=== PATIENT | female | born 1955 | race Caucasian/White ===

== ENCOUNTER → 2017-06-27 14:47 | Outpatient (CLI) | payer OTHER, SELFPAY ==
[2017-06-27 14:53] LABS: Bacteria 0 SEEN /hpf (None Seen); Mucous, Urine 0 SEEN /hpf (<or=2+); Red Blood Cells-Urine 0 SEEN /hpf (0-5); Squamous Epithelial Cells - UA 0 SEEN /hpf (5-10); White Blood Cells 0 SEEN /hpf (0-5)
[2017-06-27 15:40] LABS: Color, Urine Yellow (Yellow); Glucose, Dipstick Normal (Normal); Ketone-Dipstick Negative (Negative); Leukocyte Esterase-Dipstick Negative /ul (Negative); Nitrite-Dipstick Negative (Negative); Occult Blood-Urine 25 /ul (Negative); Protein-Dipstick Negative (Negative); Specific Gravity, Urine 1.015 (1.002-1.030); Urine Bilirubin Dipstick Negative (Negative); Urine Clarity Clear (Clear); Urine Urobilinogen Normal (Normal)
== END ==
PROVIDERS: Family Provider Nurse Practitioner Family; PCP Nurse Practitioner Family; Visit Provider Nurse Practitioner Family
DX: R10.9 Unspecified abdominal pain (principal)
CPT/HCPCS: 81001; 87086

== ENCOUNTER → 2017-07-01 12:22 | Outpatient (CLI) | payer OTHER, SELFPAY ==
--- NOTE | 2017-07-01 12:26 | US_ITS ---
US Transvaginal Non-OB INDICATION: MID PELVIC AND PERONEAL PAIN X 1 MONTHPOST MENOPAUSALTUBAL LIGATION 1986 COMPARISON: None TECHNIQUE: Ultrasonographic grayscale and Doppler duplex investigation of the pelvic structures by a transvaginal and transabdominal approach FINDINGS: The uterus is anteverted and measures 8.3 x 4.6 x 2.5 cm within endometrial stripe of 4 mm. Fluid is seen in the endometrium. A 1 cm fundal fibroid is noted. The myometrium is overall heterogenous. Prominent vessels are seen in the left pelvis suggestive of venous congestion. The right ovary is only visualized transabdominally, measures normal in size and demonstrates normal flow. The left ovary is normal in size and demonstrates normal follicular anatomy and normal flow. The urinary bladder contains 350 mL at the time of the scan and appears within normal limits. There is no evidence of free fluid. US/Transvaginal Non- IMPRESSION: Prominent venous vessels in the left pelvis suggestive of pelvic venous congestion. 4 mm endometrial stripe with suggestion of fluid in the endometrium, unusual for a postmenopausal patient, gynecological evaluation is recommended. Normal-sized ovaries with normal flow. at 1903 Reported and signed by: Anna Motta MD Electronically Signed: Anna Motta MD at 19:01 EDT Tel , Service support ,
--- NOTE | 2017-07-01 12:26 | US_ITS ---
US Transvaginal Non-OB INDICATION: MID PELVIC AND PERONEAL PAIN X 1 MONTHPOST MENOPAUSALTUBAL LIGATION 1986 COMPARISON: None TECHNIQUE: Ultrasonographic grayscale and Doppler duplex investigation of the pelvic structures by a transvaginal and transabdominal approach FINDINGS: The uterus is anteverted and measures 8.3 x 4.6 x 2.5 cm within endometrial stripe of 4 mm. Fluid is seen in the endometrium. A 1 cm fundal fibroid is noted. The myometrium is overall heterogenous. Prominent vessels are seen in the left pelvis suggestive of venous congestion. The right ovary is only visualized transabdominally, measures normal in size and demonstrates normal flow. The left ovary is normal in size and demonstrates normal follicular anatomy and normal flow. The urinary bladder contains 350 mL at the time of the scan and appears within normal limits. There is no evidence of free fluid. US/Pelvic (Non ) IMPRESSION: Prominent venous vessels in the left pelvis suggestive of pelvic venous congestion. 4 mm endometrial stripe with suggestion of fluid in the endometrium, unusual for a postmenopausal patient, gynecological evaluation is recommended. Normal-sized ovaries with normal flow. at 1903 Reported and signed by: Anna Motta MD Electronically Signed: Anna Motta MD at 19:01 EDT Tel , Service support ,
== END ==
PROVIDERS: Family Provider Nurse Practitioner Family; PCP Nurse Practitioner Family; Visit Provider Nurse Practitioner Women's Health
DX: R10.2 Pelvic and perineal pain (principal)
CPT/HCPCS: 76830; 76856

== ENCOUNTER 2018-09-10 10:45 | Emergency (ER) | payer OTHER, SELFPAY ==
[2018-09-10 10:47] VITALS: BP 129/75; PULSE 78; RESP 17; TEMP 36.7; O2SAT 96; BMI 26.9
[2018-09-10 11:13] VITALS: TEMP 36.7
--- NOTE | 2018-09-10 11:36 | ED.VIS.LOWEX ---
History of Present Illness Chief Complaint: Lower Extremity Injury Informant: Patient Onset: Weeks - 1.5 Context: Gradual Onset Timing: Continuous Quality of Pain: Aching Current Severity: Moderate Maximum Severity: Moderate Worsened by: Walking, palpation Relieved by: Rest Associated Symptoms: Negative for: Parasthesia, Weakness, Loss of Funtion Narrative: Patient states around 2 weeks ago she had bilateral lower extremity varicose vein stripping that was performed by a surgeon in [place]. She felt great for the first 4 days, now for the past 1.5 weeks she has had gradually worsening pain and redness more so on the left lower leg, mildly on the right. 1 of the incisions has been draining serosanguineous fluid and small amounts but the others have not. She denies any swelling/edema or pain in her thighs, fevers, chest pain, or shortness of breath. This is the first time she has seen anyone since her surgery for this problem. - Past Medical History (1) Varicose veins of both lower extremities Status: Chronic Past Medical History - Allergies and Home Meds Allergies/Adverse Reactions: Allergies amoxicillin Allergy (Verified 09/10/18 10:47) Unknown aspirin Allergy (Verified 09/10/18 10:47) Unknown ATB THAT WAS GIVEN FOR CELLULITIS Allergy (Uncoded 09/10/18 10:47) Hives Surgical History: - - Varicose vein stripping Lives: With Family Smoking Status: Never smoker Review of Systems General: Denies: Chills, Fever, Sweats Cardiovascular: Denies: Chest pain, Palpitations Respiratory: Denies: Dyspnea, Cough, Dyspnea on exertion Musculoskeletal: Reports: Extremity Pain. Denies: Neck pain, Back pain, Swelling Neurological: Denies: Headache, Weakness, Numbness Physical Exam Vital Signs/Narrative: Vital Signs Temp Pulse Resp BP Pulse Ox 09/10/18 11:13 98.1 F 09/10/18 10:47 98.1 F 78 17 129/75 H 96 Inital Vital Signs reviewed: Yes General: Well nourished, Well developed, - - Well-appearing, NAD Head: Normocephalic, Atraumatic Skin: - - Multiple healing linear longitudinal incisions on both lower legs distal to the knees. There is some mild erythema between 2 at the mid medley level, just medially, on the right lower leg which is tender. There is more erythema in the distal mid medley medial aspect of the left lower leg, there is no abscess either place. There is minor serous drainage present at the incision just distal to the erythematous area on the left. No purulent discharge or abscess. Neurological: Alert, Oriented x3, Cranial nerves II-XII grossly intact, Normal Strength, Normal Sensation, Normal Gait Psychological: Normal affect, Normal Mood Diagnostic/Tx/Re-eval - Medical Decision Making My suspicion is that she is developing cellulitis. She does not appear to have a DVT, there is no calf tenderness, there is significant postoperative bruising that appears to be old and resolving. She has no palpable cords in the lower legs or the thighs, there is no inguinal lymphadenopathy or lymphangitis. Her vital signs are normal. I think it is reasonable to start her on antibiotics and have her follow-up closely as an outpatient, she was also shown how to do dressing changes with antibiotic ointment on the draining wound that is not grossly dehisced, and she is comfortable with this plan. She thinks it might of been cephalexin that gave her hives, so we will do clindamycin for that reason, we discussed its tendency to give people diarrhea and she is advised to eat yogurt or take a probiotic. ED Disposition - Plan for ED Patient: Disposition: Home or Assisted Living Diagnosis: Cellulitis of both lower extremities Instructions: Cellulitis Prescriptions: Clindamycin [Cleocin] 300 mg PO 4X/DAY #80 cap Transmission Status: Pending to [id number] Referrals: Pranay Lai DO [NON-STAFF] - 3-5 Days
[2018-09-10] MEDS: Clindamycin HCl 150 MG Capsule 300 MG PO (12:38)
[2018-09-10 12:41] VITALS: BP 142/77; PULSE 60; RESP 17
== END 2018-09-10 12:41 | disposition home or self-care (01) ==
PROVIDERS: Emergency Provider Emergency Medicine
DX: L03.115 Cellulitis of right lower limb (principal); L03.116 Cellulitis of left lower limb; Z98.890 Other specified postprocedural states; Z88.6 Allergy status to analgesic agent
CPT/HCPCS: 99283

== ENCOUNTER 2018-09-15 12:00 | Inpatient (IN) | payer OTHER, SELFPAY ==
[2018-09-15 12:01] VITALS: BP 165/90; PULSE 77; RESP 18; TEMP 37.2; O2SAT 97; BMI 25.3
[2018-09-15 12:38] LABS: Absolute Lymphocyte Count 2.05 X10^3/uL (0.83-4.51); Absolute Neutrophil Count 5.8 X10^3/uL (2.0-7.7); Basophil# 0.06 X10^3/uL; Basophil% 0.7 % (0-1); Eosinophil# 0.16 X10^3/uL; Eosinophils% 1.9 % (0-5); Hematocrit 45.8 % (37-47); Hemoglobin 15.6 g/dL (12.0-15.0); Lymphocyte # 2.05 X10^3/ul (4.0); Lymphocyte % 23.8 % (19-41); Mean Corp Hgb Conc 34.1 g/dL (32-36); Mean Corpuscular Hgb 31.8 pg (27.0-32.0); Mean Corpuscular Volume 93.5 fL (81-99); Mean Platelet Vol. 8.9 fl (6.2-12.0); Monocyte# 0.56 X10^3/uL; Monocyte% 6.5 % (0-10); NRBC Flagged by Analyzer 0 % (0-5); Neutrophil # 5.75 X10^3/uL (2.7-7.7); Neutrophil % 66.8 % (47-70); Platelet Count 325 K/mm3 (150-450); RBC Distribution Width SD 41.6 fl (35.1-43.9); White Blood Count 8.6 K/mm3 (4.4-11.0)
--- NOTE | 2018-09-15 12:39 | ED.DCSUM_ITS ---
- ER Visit Summary Date of Service: 09/15/18 Chief Complaint: Cellulitis History of Present Illness: The patient is a 62 F with a history of vein stripping in [place] on August 23 of this year. She presents with increasing redness and cellulitis to her lower extremities. She was here 5 days ago and treated with clindamycin, but she is not improving. She reports increasing redness and pain to her lower extremities. Denies any fever or systemic symptoms. Denies chest pain or shortness of breath. She went to urgent care today for worsening symptoms, and was referred here for IV antibiotics. Physical Examination: Afebrile and vital signs are unremarkable. Patient has multiple areas consistent with vein stripping on her lower extremities. She does have one area on her left medial medley that appears to have opened. There is no drainage or bleeding. This does not communicate with the underlying bone. There is surrounding erythema and warmth. She is neurovascular intact distally. Calves are soft and supple. Test Results: CBC, BMP, cultures pending. Emergency Department Course and Treatment: Patient treated with IV vancomycin for failed outpatient treatment of cellulitis. Patient was discussed with the hospitalist and will be admitted for further care. Treatment Plan: As above Disposition: Admission Impression: 1. Bilateral leg cellulitis This note was generated with [employer] dictation software. It may contain incorrect words, spelling, and punctuation that were not noted in review of the chart prior to signing ED Disposition - Plan for ED Patient: Referrals: Care Physician,No Primary [Primary Care Provider] -
[2018-09-15 12:53] LABS: Anion Gap 5 (5-15); BUN 14 mg/dL (7-18); BUN/Creat Ratio 18.2 RATIO (10-20); Calcium,Total 9.5 mg/dL (8.5-10.1); Chloride 106 mmol/L (98-107); Creatinine, Serum 0.77 mg/dL (0.55-1.02); EST Glomerular Filtration Rate 80 mL/min (>60); Est Glom Filt Rate - Afr Amer 97 mL/min (>60); Glucose 94 mg/dL (74-106); Potassium 3.7 mmol/L (3.5-5.1); Sodium Level 137 mmol/L (136-145)
--- NOTE | 2018-09-15 13:16 | NURSING ---
316 CELLULITIS OF THE LE SEMENTI
[2018-09-15 13:20] VITALS: BP 182/99; PULSE 59; RESP 15; RESP 17; TEMP 36.6; O2SAT 98
[2018-09-15] MEDS: Vancomycin IV 1,000 MG/200 ML BAG 200 MG IV (13:22)
[2018-09-15 13:42] VITALS: BP 186/77; PULSE 63; RESP 16; TEMP 36.5; O2SAT 99
[2018-09-15 13:45] VITALS: BMI 25.7
[2018-09-15 13:58] VITALS: BMI 25.7
[2018-09-15 14:04] VITALS: BMI 25.7
[2018-09-15 14:15] VITALS: PULSE 64
--- NOTE | 2018-09-15 14:23 | NURSING ---
PADMINI, MEDICAL STUDENT IN SPEAKING W/PATIENT.
[2018-09-15 14:30] LABS: Erythrocyte Sedimentation Rate 20 mm/hr (0-30)
[2018-09-15 14:39] LABS: CRP < 2.90 mg/L (0.0-3.0)
--- NOTE | 2018-09-15 15:11 | NURSING ---
wound photo: left lower leg
--- NOTE | 2018-09-15 15:12 | NURSING ---
wound photo: right lower leg
--- NOTE | 2018-09-15 15:41 | VDLE_ITS ---
Reason For Study: Swelling RIGHT LEFT CFV is compressible, spontaneous, phasic, CFV is compressible, spontaneous, phasic, competent and demonstrates normal competent, and demonstrates normal augmentation. augmentation. Procedure FV is compressible, spontaneous, phasic, Exam performed portable in patient room. competent and demonstrates normal Pt recently had superficial vein strippings augmentation. in LLE at another facility. Unknown which PTV is compressible. superficial veins were stripped. LT PerV is compressible. A preliminary report was called and/or faxed FV Dist, Pop V, T/P Trunk are partially to Sarah. compressible with minimal flow noted. Acute deep vein thrombosis is noted in the Gastroc veins. Acute superficial vein thromosis is noted in the GSV. Thrombus filled varicose veins are noted in the calf. Interpretation Summary Acute deep vein thrombosis is noted in the left distal femoral vein. Acute deep vein thrombosis is noted in the left popliteal vein. Acute deep vein thrombosis is noted in the left tibio-peroneal trunk. Acute deep vein thrombosis is noted in the left gastrocnemius vein. The remainder of the left lower extremity deep venous system is patent and compressible. Acute superficial thrombophlebitis is noted in the left great saphenous vein, and in superficial varicosities in the left calf. Ordering Physician: Loly Smith Performed By: Starla Carroll RVKimberlee
--- NOTE | 2018-09-15 15:48 | HP.PCM_ITS ---
Problem List (1) Varicose veins of both lower extremities Status: Chronic Comment: recent vein stripping 3 weeks prior to admission to the hospital August 2018 (2) HTN (hypertension) Status: Chronic (3) FH: colon cancer Status: Chronic (4) DVT (deep venous thrombosis) Status: Suspected (5) Cellulitis Status: Acute Qualifiers: Site of cellulitis of extremity: lower extremity Comment: resolving (6) Superficial thrombophlebitis Status: Acute Qualifiers: Superficial thrombophlebitis-Involved body area: lower extremity Laterality: left Qualified Code(s): I80.02 - Phlebitis and thrombophlebitis of superficial vessels of left lower extremity History of Present Illness Date of Admission: 09/15/18 Chief Complaint: Left leg pain and swelling The patient is a 62 year old F who presented today with erythema and edema of her LLE secondary to venous stripping. She went to [place] by train about 3 weeks ago to get a venous stripping procedure to repair her chronic varicose veins. About two weeks ago, she started to get erythema and edema on both legs, but considerable worse on the left leg just proximal of the medial malleolus Patient admits to burning pain which is 3 out of 10, with shooting, stinging pain up to 8 out of 10. The pain comes and goes and is worse with standing and walking around, but better with rest, elevation, and Tylenol. She went to the ER a week ago and was given a ten day course of Clindamycin. Today on day 6 of Clindamycin, she returned to the ER because the erythema and edema has not improved. She stated that there was increased tightness in the left medial malleolus area. Patient admits to ambulating as much as possible, but does sit with legs elevated for a significant part of her day. [] Past Medical History Past Medical History (Chronic Problems): Chronic Problems (Last Reviewed 07/01/17 @ 09:51 by Almaz Montalvo) Varicose veins of both lower extremities (Chronic) recent vein stripping 3 weeks prior to admission to the hospital August 2018 HTN (hypertension) (Chronic) FH: colon cancer (Chronic) Allergies amoxicillin Allergy (Verified 09/10/18 10:47) Unknown aspirin Allergy (Verified 09/10/18 10:47) Unknown azithromycin [From Zithromax] Adverse Reaction (Verified 09/15/18 13:58) Hives Home Medications: Ambulatory Orders Medication Instructions Recorded Clindamycin [Cleocin] 300 mg PO 4X/DAY #80 cap 09/10/18 Lamar-3 Fatty Acids [Lamar-3] 3,000 mg PO DAILY 09/15/18 Vitamin B Complex 1 ea PO DAILY 09/15/18 Surgical History: Surgical History (Last Reviewed 09/15/18 @ 16:22 by Loly Smith DO) H/O tubal ligation Z98.51 Status post bunionectomy Z98.890 Surgical History: - - Varicose vein stripping August 2018 Psychiatric History: No pertinent psych hx 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 Lives: Spouse/ Significant Other Smoking Status: Never smoker Tobacco Use: Non-smoker Alcohol: None - *Family History Maternal Family History: Family History (Last Reviewed 09/15/18 @ 16:24 by Loly Smith DO) Other Heart disease Kidney disease Paternal Family History: Family History (Last Reviewed 09/15/18 @ 16:24 by Loly Smith DO) Other Heart disease Kidney disease Sibling Family History: Family History (Last Reviewed 09/15/18 @ 16:24 by Loly Smith DO) Other Heart disease Kidney disease History Items: Cancer - colon in brothers Review of Systems Constitutional: Denies: Chills, Fever Eyes: Denies: Blurred vision, Double vision HEENT: Denies: Head Aches, Sinus Congestion, Sinus Drainage Cardiovascular: Denies: Chest Pain, Palpitations Respiratory: Denies: Cough, Shortness of breath at rest, Sputum production, Wheezing Gastrointestinal: Denies: Abdominal Pain, Constipation, Diarrhea, Nausea, Vomiting Genitourinary: Denies: Dysuria, Frequency, Hematuria Musculoskeletal: Reports: Leg Pain. Denies: Joint Pain, Joint Tenderness Skin: Reports: Skin Changes - evidence of previous venous stasis ulcers of the left medial malleolar area. Goblet deformity of the leg, fibrotic non-elastic skin over the distal L LE, palpable superficial cords of the distal LLE due to superficial thrombophlebitis, Wounds, - - Bruises secondary to surgical procedure Neurological: Denies: Numbness, Tingling, Focal weakness Psychiatric: Denies: Anxiety, Depression, Homicidal Ideations, Suicidal Ideations Hematologic/ Lymphatic: Denies: Easy Bruising, Easy Bleeding, Hx of blood clot - other than sperficial of the legs VTE Information - Inpt Only VTE Present on Admission: No VTE Mechan Device Prophylaxis: Knee High ADENIKE Hose VTE Pharm Prophylaxis ordered?: No Reason prophylaxis not ordered:: Medical Contraindication - started on a heparin infusion for suspected DVT VTE Suspected: Suspected DVT - placed on Heparin infusion and venous US ordered Patient Problems: Active and Suspected Problems (Last Reviewed 07/01/17 @ 09:51 by Almaz Montalvo) DVT (deep venous thrombosis) (Suspected) Cellulitis (Acute) resolving Superficial thrombophlebitis (Acute) - Physical Exam General: Alert, Oriented x3, Cooperative, No apparent distress, Well developed, Well nourished HEENT: Atraumatic, PERRLA, EOMI Oral: Moist Mucosa Lungs: Clear to auscultation, Normal air movement, No rhonchi, No wheeze, No rales Cardiovascular: Regular rate, Regular Rhythm, Murmur Abdomen: Bowel Sounds Present, Soft, Non Tender, Non-Distended Extremities: No clubbing, No cyanosis - calf on the left, Edema - minimal on the right and + on the left, Tenderness, - - Left leg has palpable superfical venous clots present Skin: Ulcer/ Wound - Several healing incisions on legs bilateral secondary to venous surgery. Area proximal of left medial malleolus is fibrotic and has chronic skin changes....evidence of old healed venous stasis ulcer, Skin Tear Neurological: Cranial nerves II-XII grossly intact, Neuro grossly intact Psych/Mental Status: Normal Affect, Appropriate Vital Signs Temp Pulse Resp BP Pulse Ox 97.7 F L 64 16 186/77 H 99 09/15/18 13:42 09/15/18 14:15 09/15/18 13:42 09/15/18 13:42 09/15/18 13:42 Oxygen Delivery Method Room Air Weight: 159 lb 6.307 oz Body Mass Index (BMI) 25.7 Laboratory Tests Past 24 Hrs 09/15/18 09/15/18 09/15/18 12:29 12:29 12:29 WBC 8.6 RBC 4.90 Hgb 15.6 H Hct 45.8 MCV 93.5 MCH 31.8 MCHC 34.1 RDW Std Deviation 41.6 RDW Coeff of [place] 12.0 Plt Count 325 MPV 8.9 Immature Gran % (Auto) 0.300 Neut % (Auto) 66.8 Lymph % (Auto) 23.8 [place] % (Auto) 6.5 Eos % (Auto) 1.9 Baso % (Auto) 0.7 Absolute Neuts (auto) 5.8 Absolute Lymphs (auto) 2.05 Nucleated RBC % 0 ESR 20 Sodium 137 Potassium 3.7 Chloride 106 Carbon Dioxide 26.0 Anion Gap 5 BUN 14 Creatinine 0.77 Estim Creat Clear Calc 69.10 Est GFR (MDRD) Af Amer 97 Est GFR (MDRD) Non-Af 80 BUN/Creatinine Ratio 18.2 Glucose 94 Calcium 9.5 C-React Prot Ext Range 09/15/18 12:29 WBC RBC Hgb Hct MCV MCH MCHC RDW Std Deviation RDW Coeff of [place] Plt Count MPV Immature Gran % (Auto) Neut % (Auto) Lymph % (Auto) [place] % (Auto) Eos % (Auto) Baso % (Auto) Absolute Neuts (auto) Absolute Lymphs (auto) Nucleated RBC % ESR Sodium Potassium Chloride Carbon Dioxide Anion Gap BUN Creatinine Estim Creat Clear Calc Est GFR (MDRD) Af Amer Est GFR (MDRD) Non-Af BUN/Creatinine Ratio Glucose Calcium C-React Prot Ext Range < 2.90 Assessment/Plan All Active Problems (Last Reviewed 07/01/17 @ 09:51 by Almaz Montalvo) Cellulitis (Acute) Superficial thrombophlebitis (Acute) Day #6 of Clindamycin Impression 1) possible resolving cellulitis LLE, s/p vein stripping 3 weeks ago 2) HTN 3) Colon cancer risk with + FH of colon CA 4) suspected DVT LLE -acute skin findings on chronic skin changes -continue with Clindamycin to finish the 10 day course -discontinue Vancomycin -Ultrasonography of LLE to look for DVT -Pain control with scheduled Tylenol 1000mg Q8Hr with Oxycodone PRN -Warm compresses 10-15 minutes QID -Keep legs elevated and wear compression stocking when ambulating -Start Lisinopril 5mg once daily for HTN -f/u with PCP for HTN and to schedule colonoscopy - start heparin infusion with a heparin bolus and await the results of venous ultrasound. Code Visit OBSV E&M: [id number] Initial observation care L2
[2018-09-15 16:35] LABS: Partial Thromboplast Time 27.8 Seconds (24.1-36.2); Prothrombin Time (Protime)PT. 13.3 SECONDS (11.7-14.9)
[2018-09-15] MEDS: Acetaminophen 500 MG Tablet 1000 MG PO ×2 (17:00→22:18)
[2018-09-15] MEDS: Lisinopril 5 MG Tablet PO (17:00)
[2018-09-15] MEDS: HEPARIN/D5w 25,000 UNITS 25,000 UNITS/250 ML IV.SOLN. 11 UNITS IV (17:39)
[2018-09-15] MEDS: Heparin Injection (Vial) 5,000 UNIT/ML VIAL 5000 UNIT IV (17:40)
[2018-09-15] MEDS: 0.9% NaCl Peripheral Flush Adult/Peds IV (17:41)
[2018-09-15] MEDS: Clindamycin HCl 150 MG Capsule PO ×2 (17:42→22:18)
[2018-09-15 19:18] VITALS: BP 135/71; PULSE 63; RESP 18; TEMP 36.6; O2SAT 97
[2018-09-15 22:18] VITALS: BP 159/74; PULSE 56; RESP 18; TEMP 36.6; O2SAT 96
[2018-09-15 23:45] LABS: Partial Thromboplast Time 145.5 Seconds (24.1-36.2)
[2018-09-16 00:50] LABS: Partial Thromboplast Time 107.5 Seconds (24.1-36.2)
[2018-09-16 05:17] VITALS: BP 136/72; PULSE 58; RESP 18; TEMP 37; O2SAT 96
--- NOTE | 2018-09-16 06:13 | PCM.PROGNOTE ---
Patient Problems: Active and Suspected Problems (Last Reviewed 07/01/17 @ 09:51 by Almaz Montalvo) DVT (deep venous thrombosis) (Suspected) Cellulitis (Acute) resolving Superficial thrombophlebitis (Acute) Subjective: Patient is a 62-year-old female admitted to the hospital yesterday with DVT and superficial thrombophlebitis of the left lower extremity with recent history of vein stripping in [place] approximately 3 weeks ago. Afebrile since admission. Blood pressure is coming under better control with the initiation of an antihypertensive. Current blood pressure is 136/72. Heart rate is 58. Oxygen saturation is 96 to 99% on room air. Venous ultrasound of the left lower extremity showed acute deep vein thrombosis in the left distal femoral vein, left popliteal vein left tibial peroneal trunk and the left gastrocnemius vein. The remainder of the left lower extremity deep venous system was patent and compressible. She also has acute superficial thrombophlebitis in the left great saphenous vein and in the superficial varicosities in the left calf. She has not taken any oxycodone for pain. She refused Tylenol this morning. She is afraid the drugs will make her constipated. The pain is worse when she bears weight. today she has pain in the distal anterior thigh as well. No chest pain, no shortness of breath. Objective: PHYSICAL EXAM: GENERAL: alert, oriented X 3, Cooperative, NAD ORAL: moist mucosa, no mucosal lesions NECK: No JVD, supple, trachea midline LUNGS: CTA, symmetric chest expansion HEART: RRR, Normal S1 and S2, no rub, no gallop ABDOMEN: soft, NT, ND, BS present, no guarding with palpation EXTREMITIES: No clubbing, No cyanosis - calf on the left, Edema - minimal on the right and + on the left, Tenderness, - - Left leg has palpable superfical venous clots present...... the right distal calf today also has palpable superficial clots. SKIN: No rashes, no breakdown NEUROLOGIC: no focal neurologic deficits PSYCH: appropriate, normal affect, pleasant - Physical Exam Vital Signs Temp Pulse Resp BP Pulse Ox 98.6 F 58 L 18 136/72 H 96 09/16/18 05:17 09/16/18 05:17 09/16/18 05:17 09/16/18 05:17 09/16/18 05:17 Oxygen Delivery Method Room Air Weight: 159 lb 6.307 oz Body Mass Index (BMI) 25.7 Intake and Output for Last 24 Hours 09/14/18 09/15/18 09/16/18 23:59 23:59 23:59 Intake Total 1360 / 2252.9 892.9 / 892.9 Output Total 700 / 700 Balance 1360 / 1552.9 192.9 / 192.9 Laboratory Tests Past 24 Hrs 09/15/18 09/15/18 09/15/18 12:29 12:29 12:29 WBC 8.6 RBC 4.90 Hgb 15.6 H Hct 45.8 MCV 93.5 MCH 31.8 MCHC 34.1 RDW Std Deviation 41.6 RDW Coeff of [place] 12.0 Plt Count 325 MPV 8.9 Immature Gran % (Auto) 0.300 Neut % (Auto) 66.8 Lymph % (Auto) 23.8 [place] % (Auto) 6.5 Eos % (Auto) 1.9 Baso % (Auto) 0.7 Absolute Neuts (auto) 5.8 Absolute Lymphs (auto) 2.05 Nucleated RBC % 0 ESR 20 PT INR APTT Sodium 137 Potassium 3.7 Chloride 106 Carbon Dioxide 26.0 Anion Gap 5 BUN 14 Creatinine 0.77 Estim Creat Clear Calc 69.10 Est GFR (MDRD) Af Amer 97 Est GFR (MDRD) Non-Af 80 BUN/Creatinine Ratio 18.2 Glucose 94 Calcium 9.5 C-React Prot Ext Range 09/15/18 09/15/18 09/15/18 12:29 16:11 23:20 WBC RBC Hgb Hct MCV MCH MCHC RDW Std Deviation RDW Coeff of [place] Plt Count MPV Immature Gran % (Auto) Neut % (Auto) Lymph % (Auto) [place] % (Auto) Eos % (Auto) Baso % (Auto) Absolute Neuts (auto) Absolute Lymphs (auto) Nucleated RBC % ESR PT 13.3 INR 1.0 APTT 27.8 145.5 H* Sodium Potassium Chloride Carbon Dioxide Anion Gap BUN Creatinine Estim Creat Clear Calc Est GFR (MDRD) Af Amer Est GFR (MDRD) Non-Af BUN/Creatinine Ratio Glucose Calcium C-React Prot Ext Range < 2.90 09/16/18 09/16/18 00:35 05:50 WBC RBC Hgb Hct MCV MCH MCHC RDW Std Deviation RDW Coeff of [place] Plt Count MPV Immature Gran % (Auto) Neut % (Auto) Lymph % (Auto) [place] % (Auto) Eos % (Auto) Baso % (Auto) Absolute Neuts (auto) Absolute Lymphs (auto) Nucleated RBC % ESR PT INR APTT 107.5 H* Pending Sodium Potassium Chloride Carbon Dioxide Anion Gap BUN Creatinine Estim Creat Clear Calc Est GFR (MDRD) Af Amer Est GFR (MDRD) Non-Af BUN/Creatinine Ratio Glucose Calcium C-React Prot Ext Range Medical Necessity - Tobacco Use Smoking Status: Never smoker Tobacco Use: Non-smoker Assessment/Plan All Active Problems (Last Reviewed 07/01/17 @ 09:51 by Almaz Montalvo) Cellulitis (Acute) Superficial thrombophlebitis (Acute) Day #7 of Clindamycin Impression 1) possible resolving cellulitis LLE, s/p vein stripping 3 weeks ago 2) HTN 3) Colon cancer risk with + FH of colon CA 4) extensive DVT left lower extremity involving the left distal femoral vein, left popliteal vein, left tibial peroneal trunk and the left gastrocnemius vein. 5. Superficial thrombophlebitis bilateral lower extremities Start stool softeners daily Milk of magnesia as needed constipation I encouraged her to try the oxycodone Pain is not adequately controlled-we will keep her in the hospital today and continue intravenous heparin. We will check with the pharmacy what the cost of Xarelto or Eliquis would be for her as she does not want to take warfarin and have to have frequent lab. Code Visit Inpatient E&M: [id number] Subs Hosp L2
[2018-09-16 06:14] LABS: Partial Thromboplast Time 74.1 Seconds (24.1-36.2)
--- NOTE | 2018-09-16 06:35 | NURSING ---
APTT WITHIN GAL. HEPARIN GTT REMAINS AT 8ML/HR
[2018-09-16] MEDS: Acetaminophen 500 MG Tablet 1000 MG PO ×3 (07:51→21:45)
[2018-09-16 07:53] VITALS: BP 156/81; PULSE 70; RESP 18; TEMP 36.7; O2SAT 100
[2018-09-16] MEDS: Lisinopril 5 MG Tablet PO (07:59)
[2018-09-16] MEDS: Clindamycin HCl 150 MG Capsule PO ×4 (10:43→21:48)
[2018-09-16 13:35] LABS: Partial Thromboplast Time 62.6 Seconds (24.1-36.2)
[2018-09-16] MEDS: oxyCODONE 5 MG Tablet PO (13:42)
[2018-09-16] MEDS: Psyllium 1 PACKET PO ×2 (13:43→21:45)
[2018-09-16 13:46] VITALS: BP 129/69; PULSE 58; RESP 18; TEMP 36.9; O2SAT 98
--- NOTE | 2018-09-16 14:30 | CASEMGMT ---
MORIS REED Face to Face with patient for initial transition planning/care coordination assessment. RN DEREK introduced self and role at [facility]. Patient lying in bed, alert and oriented. Patient willing to participate in assessment and is able to answer all questions appropriately. Care providers, pharmacy, and demographics verified. Patient wishes to discharge home, denies need for home health at this time. Patient states she has no further needs or concerns at this time. CM to follow for discharge planning needs that may arise. PCP: Patient has appt on 09/23/18 with [facility] Specialists: none Preferred Pharmacy: [facility] Insurance: [employer] Prescription Benefit: none Living Will/HPOA: none LNOK: Living Arrangements: Patient lives with in 2 story home with bed and bath on first floor. Transportation: Patient uses a auto parts delivery driver DME/HHC: Patient denies any DME or previous HHC. Disposition Plan: Patient to discharge home with family support and follow-up plans in place. Starla TOSCANO, RN, CM
[2018-09-16 17:50] VITALS: BP 138/69; PULSE 59; RESP 18; TEMP 36.8; O2SAT 99
[2018-09-16 20:00] VITALS: BP 125/80; PULSE 62; RESP 18; TEMP 36.4; O2SAT 97
[2018-09-16] MEDS: HEPARIN/D5w 25,000 UNITS 25,000 UNITS/250 ML IV.SOLN. 11 UNITS IV (23:26)
--- NOTE | 2018-09-16 23:31 | NURSING ---
[id number]- spoke to pharmacist Sylvain if they have micro gtt tubing available. states heparin gtt does not need micro gtt tubing and ok for regular iv tubing as long as its on a pump.
[2018-09-17 02:00] VITALS: BP 123/68; PULSE 56; RESP 18; TEMP 36.4; O2SAT 98
[2018-09-17] MEDS: Acetaminophen 500 MG Tablet 1000 MG PO (05:23)
[2018-09-17 06:24] LABS: Hematocrit 44.4 % (37-47); Hemoglobin 14.8 g/dL (12.0-15.0); Mean Corp Hgb Conc 33.3 g/dL (32-36); Mean Corpuscular Hgb 31.4 pg (27.0-32.0); Mean Corpuscular Volume 94.3 fL (81-99); Mean Platelet Vol. 8.9 fl (6.2-12.0); Platelet Count 321 K/mm3 (150-450); RBC Distribution Width CV 12.5 % (11.6-14.6); Red Blood Count 4.71 M/mm3 (4.2-5.4); White Blood Count 8.3 K/mm3 (4.4-11.0)
[2018-09-17 09:40] VITALS: BP 126/76; PULSE 63; RESP 18; TEMP 36.7; O2SAT 97
[2018-09-17] MEDS: oxyCODONE 5 MG Tablet PO (09:42)
[2018-09-17] MEDS: Clindamycin HCl 150 MG Capsule PO (09:43)
[2018-09-17] MEDS: Lisinopril 5 MG Tablet PO (09:44)
[2018-09-17] MEDS: Psyllium 1 PACKET PO (09:44)
--- NOTE | 2018-09-17 10:19 | PCM.DC ---
- Discharge Diagnoses Current Active Problems: Current Active and Chronic Problems (Last Reviewed 07/01/17 @ 09:51 by Almaz Montalvo) HTN (hypertension) (Chronic) FH: colon cancer (Chronic) Cellulitis (Acute) resolving Superficial thrombophlebitis (Acute) You will use the following diet at home:: No restrictions Your food should be the consistency of: Regular Your liquids should be the consistency of: Regular/Thin Discharge Activity: - - Do not participate in sports or activities that would possibly lead to head injury. Call your doctor if you observe: Fever of 101 or Higher, Shortness of breath, Chest pain, Uncontrolled pain, - - any bloody noses, blood from the vagina or the anus or blood in the urine Instructions: Apixaban Oral tablet Additional Instructions: After you are off the eliquis I recommend that you have a colonoscopy due to your family history of colon cancer. You will need to take the Eliquis for 3-6 months. You should have a repeat ultrasound of the legs in 3 months and if the clots are no longer present then the eliquis should be discontinued. I am giving you a prescription for pain medication. It can cause constipation so take a stool softener daily. we have been giving you Metamucil in the hospital. Take 1 tablespoon in 8 oz of water 1-2 times a day. Allergies/Adverse Reactions: Allergies amoxicillin Allergy (Verified 09/10/18 10:47) Unknown aspirin Allergy (Verified 09/10/18 10:47) Unknown azithromycin [From Zithromax] Adverse Reaction (Verified 09/15/18 13:58) Hives Medications to take at Discharge Clindamycin [Cleocin] 300 mg PO 4X/DAY #80 cap 09/10/18 [place]-3 Fatty Acids [[place]-3] 3,000 mg PO DAILY 09/15/18 Vitamin B Complex 1 ea PO DAILY 09/15/18 Apixaban [Eliquis] 5 mg PO BID #1 tab.ds.pk 09/17/18 Lisinopril [Zestril] 5 mg PO DAILY #30 tab 09/17/18 Oxycodone HCl/Acetaminophen [Percocet 5/325] 1 tablet PO Q4H PRN PRN 7 Days #28 tablet 09/17/18 Psyllium [Metamucil] 1 packet PO BID packet 09/17/18 The following prescriptions were given: Apixaban [Eliquis] 5 mg PO BID #1 tab.ds.pk Transmission Status: Pending to [facility] Oxycodone HCl/Acetaminophen [Percocet 5/325] 1 tablet PO Q4H PRN PRN 7 Days #28 tablet PRN Reason: Pain Transmission Status: Sent to [facility] Lisinopril [Zestril] 5 mg PO DAILY #30 tab Transmission Status: Pending to [facility] Primary Care Physician: Care Physician,No Primary [Primary Care Provider] - Please follow up with your Primary Care Physician in: has an appt for 09/23 at [facility] medicine Test Results: Test results from this visit will be discussed in further detail at your follow-up appointment, if applicable. Proposed Discharge Date: 09/17/18
--- NOTE | 2018-09-17 10:34 | PCM.DC.SUM ---
Discharge Date and Diagnosis - Problem List Patient Problems: Active and Suspected Problems (Last Reviewed 07/01/17 @ 09:51 by Almaz Montalvo) DVT (deep venous thrombosis) (Acute) Cellulitis (Acute) resolving Superficial thrombophlebitis (Acute) Date of Admission: 09/15/18 Date of Discharge: 09/17/18 - Primary Discharge Diagnosis Active and Suspected Problems (Last Reviewed 07/01/17 @ 09:51 by Almaz Montalvo) DVT (deep venous thrombosis) (Acute) - LLE Cellulitis (Acute) - resolving LLE at the medial ankle Superficial thrombophlebitis (Acute) BL LE's - Secondary Discharge Diagnosis Chronic Problems (Last Reviewed 07/01/17 @ 09:51 by Almaz Montalvo) Varicose veins of both lower extremities (Chronic) recent vein stripping 3 weeks prior to admission to the hospital August 2018 HTN (hypertension) (Chronic) FH: colon cancer (Chronic) Hospital Course and Treatment Imaging Results: Laboratory Results - last 24 hr 09/16/18 09/17/18 09/17/18 12:55 05:55 05:55 WBC 8.3 RBC 4.71 Hgb 14.8 Hct 44.4 MCV 94.3 MCH 31.4 MCHC 33.3 RDW Std Deviation 43.0 RDW Coeff of [place] 12.5 Plt Count 321 MPV 8.9 APTT 62.6 H 70.0 H Interpretation Summary Acute deep vein thrombosis is noted in the left distal femoral vein. Acute deep vein thrombosis is noted in the left popliteal vein. Acute deep vein thrombosis is noted in the left tibio-peroneal trunk. Acute deep vein thrombosis is noted in the left gastrocnemius vein. The remainder of the left lower extremity deep venous system is patent and compressible. Acute superficial thrombophlebitis is noted in the left great saphenous vein, and in superficial varicosities in the left calf. Consultations 09/15/18 14:05 Consult: Onc/Wound/preschool assistant director Routine Comment: Operations: None Procedures: None Summary of Care Provided: The patient is a 62 year old F who presented today with erythema and edema of her LLE secondary to venous stripping. She went to [place] by train about 3 weeks ago to get a venous stripping procedure to repair her chronic varicose veins. About two weeks ago, she started to get erythema and edema on both legs, but considerably worse on the left leg just proximal of the medial malleolus.. Patient admited to burning pain which was 3 out of 10, with shooting, stinging pain up to 8 out of 10 with weight bearing. The pain comes and goes and is worse with standing and walking around, but better with rest, elevation, and Tylenol. She went to the ER a week ago and was given a ten day course of Clindamycin. Today on day 6 of Clindamycin, she returned to the ER because the erythema and edema had not improved. She stated that there was increased tightness in the left medial malleolus area. She denied a hx of venous thromboembolism. She denied chest pain or shortness of breath. Vital signs at presentation to the emergency department were temperature 98.9, pulse rate 77, blood pressure 165/90, respiratory rate 18 and she was 97 to 99% saturated on room air. CBC was remarkable for a mildly elevated hemoglobin at 15.6 suspected to be due to hemoconcentration. PT and PTT were within normal limits. BMP was unremarkable. ESR and CRP were within normal limits. On physical examination the patient had left calf pain. There were multiple areas of palpable clot in the superficial veins and she had some redness and mild increased warmth to touch. She had resolving ecchymosis. We suspect that she had deep vein thrombosis in addition to superficial thrombophlebitis and a venous ultrasound was obtained. Venous ultrasound showed acute deep vein thrombosis in the left distal femoral vein, left popliteal vein, left tibial peroneal trunk and in the left gastrocnemius vein. There was acute superficial thrombophlebitis noted in the left greater saphenous vein and in the left calf. She was placed on a continuous heparin infusion and was given pain medication. She was started on lisinopril 5 mg daily for hypertension. She felt the oxycodone was effective in improving her pain. She continued to deny chest pain or shortness of breath for the duration of her hospital stay. On 09/17/2018 she was afebrile with stable vital signs. The blood pressure was well controlled with lisinopril and on the date of discharge was 126/76. She preferred not to take Coumadin and therefore was discharged on Eliquis 10 mg twice daily x1 week and decreasing to 5 mg twice daily thereafter. Would repeat a venous ultrasound in 3 months and if the clots have resolved we will discontinue Eliquis at that time. Would continue compression hose to control edema. She was given a prescription for lisinopril, Eliquis and Percocet for pain control at discharge. She has an appointment with Dr. Sifuentes on 09/23/2018. There is a strong family history of colon cancer and she has never had a colonoscopy. I recommended to her that following conclusion of anticoagulation she obtain a colonoscopy. A stool for occult blood was checked in the hospital and was negative. GENERAL: alert, oriented X 3, Cooperative, NAD ORAL: moist mucosa, no mucosal lesions NECK: No JVD, supple, trachea midline LUNGS: CTA, symmetric chest expansion HEART: RRR, Normal S1 and S2, no rub, no gallop ABDOMEN: soft, NT, ND, BS present, no guarding with palpation EXTREMITIES: No clubbing, No cyanosis - calf on the left, Edema - minimal on the right and + on the left, Tenderness, - - Left leg has palpable superfical venous clots present...... the right distal calf today also has palpable superficial clots. SKIN: No rashes, no breakdown NEUROLOGIC: no focal neurologic deficits PSYCH: appropriate, normal affect, pleasant This note was generated with [employer] dictation software. It may contain incorrect words, spelling, and punctuation that were not noted in checking the note before signing. Patient Problems: Active and Suspected Problems (Last Reviewed 07/01/17 @ 09:51 by Almaz Montalvo) DVT (deep venous thrombosis) (Acute) Cellulitis (Acute) resolving Superficial thrombophlebitis (Acute) - Physical Exam Vital Signs Temp Pulse Resp BP Pulse Ox 98.1 F 63 18 126/76 H 97 09/17/18 09:40 09/17/18 09:40 09/17/18 09:40 09/17/18 09:40 09/17/18 09:40 Oxygen Delivery Method Room Air Weight: 159 lb 6.307 oz Body Mass Index (BMI) 25.7 Intake and Output for Last 24 Hours 09/15/18 09/16/18 09/17/18 23:59 23:59 23:59 Intake Total 1360 / 2252.9 3017.9 / 3017.9 225 / 225 Output Total 2650 / 2650 300 / 300 Balance 1360 / 1552.9 367.9 / 367.9 -75 / -75 Microbiology Past 72 Hours 09/17/18 06:00 Stool Occult Blood (NANCY) - Preliminary Stool Laboratory Tests Past 24 Hrs 09/16/18 09/17/18 09/17/18 12:55 05:55 05:55 WBC 8.3 RBC 4.71 Hgb 14.8 Hct 44.4 MCV 94.3 MCH 31.4 MCHC 33.3 RDW Std Deviation 43.0 RDW Coeff of [place] 12.5 Plt Count 321 MPV 8.9 APTT 62.6 H 70.0 H Discharge Activity: - - Do not participate in sports or activities that would possibly lead to head injury. Call your doctor if you observe: Fever of 101 or Higher, Shortness of breath, Chest pain, Uncontrolled pain, - - any bloody noses, blood from the vagina or the anus or blood in the urine Home Medications: Medications to take at Discharge Clindamycin [Cleocin] 300 mg PO 4X/DAY #80 cap 09/10/18 [place]-3 Fatty Acids [[place]-3] 3,000 mg PO DAILY 09/15/18 Vitamin B Complex 1 ea PO DAILY 09/15/18 Apixaban [Eliquis] 5 mg PO BID #1 tab.ds.pk 09/17/18 Lisinopril [Zestril] 5 mg PO DAILY #30 tab 09/17/18 Oxycodone HCl/Acetaminophen [Percocet 5/325] 1 tablet PO Q4H PRN PRN 7 Days #28 tablet 09/17/18 Psyllium [Metamucil] 1 packet PO BID packet 09/17/18 Following Prescrptions Were Given to Patient: Apixaban [Eliquis] 5 mg PO BID #1 tab.ds.pk Transmission Status: Pending to [facility] Oxycodone HCl/Acetaminophen [Percocet 5/325] 1 tablet PO Q4H PRN PRN 7 Days #28 tablet PRN Reason: Pain Transmission Status: Sent to [facility] Lisinopril [Zestril] 5 mg PO DAILY #30 tab Transmission Status: Pending to [facility] Primary Care Physician: Care Physician,No Primary [Primary Care Provider] - Please follow up with your Primary Care Physician in: has an appt for 09/23 at [facility] Patient Instructions: Apixaban Oral tablet Disposition: Home Minutes spent on discharge:: 30 Patient Condition:: Good Medical Necessity - Tobacco Use Smoking Status: Never smoker Tobacco Use: Non-smoker Meaningful Use Info Meaningful Use Diagnoses (Choose all that apply): VTE - VTE Anticoag overlap given w/in hospital stay or rx'd at dc?: No Pt receive overlap for 5 days?: No Reason overlap not ordered, prescribed, or given for 5 days: Treatment Not Indicated - Patient was on a heparin infusion during her hospital admission and was started on Eliquis prior to discharge Code Visit Inpatient E&M: 67996 Disch Hosp
[2018-09-17] MEDS: APIXABAN 5 MG TABLET 10 MG PO (10:46)
== END 2018-09-17 13:15 | disposition home or self-care (01) | DRG 300 ==
LOC: ED 12:21 → MS3 12:55
PROVIDERS: Admitting Provider Internal Medicine; Emergency Provider Emergency Medicine; Referring Provider Internal Medicine; Visit Provider Internal Medicine
DX: I82.412 Acute embolism and thrombosis of left femoral vein (principal); L03.116 Cellulitis of left lower limb; I82.432 Acute embolism and thrombosis of left popliteal vein; I82.4Z2 Acute embolism and thrombosis of unspecified deep veins of left distal lower extremity; I10 Essential (primary) hypertension; Z98.890 Other specified postprocedural states; Z79.01 Long term (current) use of anticoagulants
CPT/HCPCS: 36415; 80048; 82274; 85025; 85027; 85610; 85652; 85730; 86140; 87040; 93971; 97802; 99285; J7030; A4216

== ENCOUNTER 2023-05-18 18:12 | Emergency (ER) | payer OTHER, SELFPAY ==
[2023-05-18] VITALS (7 sets, daily range): BP systolic 146–162; BP diastolic 72–85; PULSE 69–84; RESP 12–16; TEMP 36.3–37.1; O2SAT 95–100; BMI 26.1
[2023-05-18 21:04] LABS: Absolute Lymphocyte Count 2.74 X10^3/uL (0.83-4.51); Absolute Neutrophil Count 3.9 X10^3/uL (2.0-7.7); Basophil# 0.11 X10^3/uL; Basophil% 1.4 % (0-1); Eosinophil# 0.53 X10^3/uL; Eosinophils% 6.6 % (0-5); Hemoglobin 13.2 g/dL (12.0-15.0); Lymphocyte # 2.74 X10^3/ul (0.83-4.51); Lymphocyte % 34.4 % (19-41); Mean Corpuscular Hgb 30.6 pg (27.0-32.0); Mean Corpuscular Volume 92.8 fL (81-99); Mean Platelet Vol. 9.8 fl (6.2-12.0); Monocyte# 0.62 X10^3/uL; Monocyte% 7.8 % (0-10); NRBC Flagged by Analyzer 0 % (0-5); Neutrophil # 3.94 X10^3/uL (2.7-7.7); Neutrophil % 49.4 % (47-70); Platelet Count 225 K/mm3 (150-450); RBC Distribution Width CV 12.4 % (11.6-14.6); RBC Distribution Width SD 42.3 fl (35.1-43.9); Red Blood Count 4.31 M/mm3 (4.2-5.4)
[2023-05-18 21:21] LABS: Anion Gap 8 (5-15); BUN 20 mg/dL (7-18); BUN/Creat Ratio 28.4 RATIO (10-20); Calcium,Total 9.3 mg/dL (8.5-10.1); Chloride 108 mmol/L (98-107); EST Glomerular Filtration Rate 88 mL/min (>60); Est Glom Filt Rate - Afr Amer 106 mL/min (>60); Estimated Creatinine Clearance 68.07 ml/min; Glucose 101 mg/dL (74-106); Potassium 3.7 mmol/L (3.5-5.1); Sodium Level 143 mmol/L (136-145)
--- NOTE | 2023-05-18 22:06 | EX.ED.DYSGE1 ---
HPI History of Present Illness Chief Complaint: Rash Informant: patient and spouse/S.O. Onset/Context/Timing Onset: Weeks (3) Context: Gradual Onset Timing: Continuous Quality: Erythematous Location: Back, bilateral lower extremities Worsened by: Nothing Relieved by: Nothing Narrative Narrative: Patient presents with a rash that has been persistent for the past 3 weeks. Patient states that ever since she had a bunionectomy in February, she has had some problems with cellulitis. Patient states she is currently on doxycycline for this. Patient states that she was recently on prednisone as well as a different antibiotic. Patient does not remember the name of the antibiotic. Patient admits to some redness in her legs and back. Patient denies any fevers or chills. [facility] Medical History Heart murmur Home Medications clindamycin HCl 150 mg capsule 300 mg (2 x 150 mg) PO 4X/DAY #80 caps 09/10/18 [Rx Last Taken 09/15/18] omega-3 fatty acids 1,000 mg capsule 3,000 mg PO DAILY 09/15/18 [History Last Taken 09/15/18] vitamin B complex 1 ea PO DAILY 09/15/18 [History Last Taken 09/14/18] apixaban 5 mg (74 tabs) tablets in a dose pack 5 mg PO BID ##1 09/17/18 [Rx Last Taken Unknown] lisinopril 5 mg tablet 5 mg PO DAILY #30 tabs 09/17/18 [Rx Last Taken Unknown] psyllium husk (aspartame) 3.4 gram oral powder packet 1 packet PO BID 09/17/18 [Rx Last Taken Unknown] prednisone 10 mg tablet 10 mg PO DAILY #63 tabs 05/18/23 [Rx Last Taken Unknown] Allergy/AdvReac Type Severity Reaction Status Date / Time amoxicillin Allergy Unknown Verified 05/18/23 18:19 aspirin Allergy Unknown Verified 05/18/23 18:19 azithromycin [From Zithromax] AdvReac Hives Verified 05/18/23 18:19 Family History Other Heart disease Kidney disease Surgical History H/O tubal ligation Status post bunionectomy Social History Smoking Status: Never smoker alcohol intake: never substance use type: does not use caffeine: Yes what type of physical activity do you participate in: walking seatbelt use: always do you feel safe at home: Yes additional social history: [employer]- Retired Patient is retired ROS ROS ED Constitutional Constitutional ED: Denies chills or fever(s) Eyes Eyes: Denies blurry vision or change in vision ENT ENT ED: Denies rhinorrhea or sore throat Cardiovascular Cardiovascular: Denies chest pain or palpitations Respiratory/Chest Respiratory/Chest: Denies cough or dyspnea Gastrointestinal Gastrointestinal: Denies nausea or vomiting Genitourinary Genitourinary ED: Denies dysuria or hematuria Musculoskeletal Musculoskeletal: Denies back pain or neck pain Integumentary Reports rash; Denies abscess Neurologic Neurologic: Denies headache(s) or weakness Allergic/Immunologic Allergic/Immunologic ED: Reports urticaria; Denies mouth swelling EXAM Physical Exam Const Vital Signs: 05/18/23 18:15 05/18/23 18:18 05/18/23 18:18 Temperature 98 F 98 F 98 F Temperature Source Temporal Temporal Temporal Pulse Rate 84 84 84 Respiratory Rate 16 16 16 Blood Pressure 162/85 H 162/85 H 162/85 H Blood Pressure Mean 110 110 110 Pulse Ox 96 96 96 Oxygen Delivery Method Room Air Room Air Room Air 05/18/23 19:18 05/18/23 20:00 05/18/23 21:00 Temperature 98 F 97.3 F L 98.2 F Temperature Source Temporal Temporal Temporal Pulse Rate 84 69 71 Respiratory Rate 16 14 16 Blood Pressure 162/85 H 151/81 H 161/79 H Blood Pressure Mean 110 104 106 Pulse Ox 96 98 95 Oxygen Delivery Method Room Air Room Air Room Air Positive well nourished and well developed General Appearance ED: well developed and NAD HEENT Reports moist mucous membranes HEENT Narrative: Oropharynx is clear. Airway is patent. Neck supple and no JVD Resp normal respiratory effort and clear to auscultation bilaterally Cardio regular rate and regular rhythm GI non-tender and non-distended Palpation: soft Neuro oriented x3, CN's II-XII intact bilaterally and no sensory deficits noted Sensorium / Orientation: alert Motor Exam: strength 5/5 throughout Psych mental status grossly normal Skin Skin Narrative: There is an erythematous macular rash over the lower extremities bilaterally. There is also an area of erythema and warmth over the mid thoracic area. There are no vesicles or pustules noted. There are no petechia or purpura noted. There is no involvement of the mucous membranes. There is no sloughing of the skin. There is no discharge or drainage noted. MDM MDM MDM Narrative Medical decision making narrative: Differential diagnosis includes cellulitis, allergic reaction, and contact dermatitis. CBC will be obtained to assess for leukocytosis, eosinophilia, and anemia. Basic metabolic profile will be obtained to assess for electrolyte abnormality and renal function. Lab Data Attestation: I reviewed the patient's lab results. Lab results narrative: CBC was reviewed. White blood cell count was normal. Hemoglobin and hematocrit were normal. Platelets were normal. There is a mild elevation in eosinophils and basophils. Basic metabolic profile was reviewed and was essentially within normal limits. Labs: Laboratory Results - last 24 hr 05/18/23 20:40 WBC 8.0 RBC 4.31 Hgb 13.2 Hct 40.0 MCV 92.8 MCH 30.6 MCHC 33.0 RDW Std Deviation 42.3 RDW Coeff of [place] 12.4 Plt Count 225 MPV 9.8 Immature Gran % (Auto) 0.400 Neut % (Auto) 49.4 Lymph % (Auto) 34.4 [place] % (Auto) 7.8 Eos % (Auto) 6.6 H Baso % (Auto) 1.4 H Absolute Neuts (auto) 3.9 Absolute Lymphs (auto) 2.74 Nucleated RBC % 0 Sodium 143 Potassium 3.7 Chloride 108 H Carbon Dioxide 27.0 Anion Gap 8 BUN 20 H Creatinine 0.70 Estim Creat Clear Calc 68.07 Est GFR (MDRD) Af Amer 106 Est GFR (MDRD) Non-Af 88 BUN/Creatinine Ratio 28.4 H Glucose 101 Calcium 9.3 Treatment and Re-Evaluation :: Patient was advised of her findings. Given the mild increase in eosinophilia, this could be an allergic reaction. Patient was instructed to continue doxycycline as prescribed. Patient was also given a prescription for prednisone to be tapered. Patient was instructed to follow-up with her primary care physician for further evaluation. Patient understood and was agreeable with the plan. All questions were answered. Discharge Plan Triage Chief Complaint: Rash ED Provider: Angel Almendarez Dx/Rx/DC Orders Clinical Impression: Cellulitis, Dermatitis Instructions: ED Cellulitis, ED Contact Dermatitis Prescriptions: New prednisone 10 mg tablet 10 mg PO DAILY Qty: 63 0RF Rx Instructions: 60 mg p.o. daily ?3 days, 50 mg p.o. daily ?3 days, 40 mg p.o. daily ?3 days, 30 mg p.o. daily ?3 days, 20 mg p.o. daily ?3 days, 10 mg p.o. daily ?3 days. No Action clindamycin HCl 150 MG capsule 300 mg PO 4X/DAY Qty: 80 0RF omega-3 fatty acids 1,000 MG capsule 3,000 mg PO DAILY vitamin B complex 1 EACH tablet 1 ea PO DAILY lisinopril 5 MG tablet 5 mg PO DAILY Qty: 30 0RF psyllium husk ([place]part[place]) 1 PACKET packet 1 packet PO BID 0RF apixaban 5 MG tablets,dose pack 5 mg PO BID Qty: 1 0RF Rx Instructions: 10 mg twice daily for 7 days and then 5 mg twice daily Primary Care Provider: MAGI JEROME Referrals: MAGI JEROME, CORPORATION SECRETARY-C [Primary Care Provider] - 3-5 Days Disposition Disposition: Home, Self Care
[2023-05-18] MEDS: predniSONE 20 MG Tablet 60 MG PO (22:35)
== END 2023-05-18 22:41 | disposition home or self-care (01) ==
PROVIDERS: Emergency Provider Emergency Medicine; PCP Nurse Practitioner Family; Visit Provider Emergency Medicine
DX: L03.115 Cellulitis of right lower limb (principal); L03.116 Cellulitis of left lower limb; L30.9 Dermatitis, unspecified
CPT/HCPCS: 80048; 85025; 87040; 99282; A4216